=== PATIENT | female | born 1975 ===

== ENCOUNTER 2018-05-31 17:34 | Inpatient (IN) | payer BC ==
[2018-05-31 18:53] VITALS: BMI 30.8
[2018-05-31] MEDS ORDERED: AMPicillin 2 GM in Sodium Chloride 0.9% 100 ML IVPB ONE (18:53)
[2018-05-31] MEDS ORDERED: Oxytocin 30 UNIT 30 UNITS/500 ML BAG IV ONE (18:56)
[2018-05-31] MEDS: Lactated Ringer's 1,000 ML IV SCH (20:25)
[2018-05-31 20:39] LABS: ALB/GLOB RATIO 0.9 (1.0-2.1); ALBUMIN 3.4 g/dL (3.5-5.0); ALT/SGPT 34 U/L (9-52); AST/SGOT 37 U/L (14-36); BLOOD UREA NITROGEN 11 mg/dl (7-17); CALCIUM 9.6 mg/dL (8.4-10.2); GFR NON-AFRICAN AMERICAN > 60
--- NOTE | 2018-05-31 21:17 | OBADHP ---
Datetime: 05/31/2018 21:10 IP Chief Complaint Other: gest DM/AMA IP Adm Impression Other: very early labor/ Gest DM/AMA Admit Comment, IP Provider: for augumentation of labor with cervidil GBS pos and IV antibiotics star teed Extremities - PN: Normal Abdomen - PN: Abnormal Breast - PN: Not Done Lungs - PN: Normal Heart - PN: Normal Thyroid - PN: Normal Neurologic - PN: Normal HEENT - PN: Normal General - PN: Normal Presentation-Admit: C FHR - Baseline A Provider: 140 Membranes, Provider: Intact Contraction Comments Provider: 2-5 mins Comments, ACOG Physical Exam: Abd soft gravid fundus at term ext no calf tenderness Gestation - Est Wks by US: 39+ Pool Provider: Negative IP Hx Assessment: The History has been Reviewed and is Current Vital Signs Provider: Reviewed IP Chief Complaint: Uterine contractions; Scheduled induction of labor; Other NICHD Variability Prov Fetus A: Moderate 6-25bpm NICHD Accel Fetus A IP Provider: [id number] NICHD Decel Fetus A IP Provider: None Dilatation, Provider: 1cm Effacement, Provider: 20 Station, Provider: H Genitourinary Exam: Normal DTRs - PN: Normal EGA AdmitDate IP: 39.5 IP Adm Impression: Term, intrauterine IP Admit Plan: Admit to unit; Initiate labor augmentation protocol
[2018-06-01 00:06] LABS: HEMOGLOBIN 11.7 g/dL (12.0-16.0); MEAN CELL VOLUME 84.8 fl (81.0-99.0); MEAN CORPUSCULAR HEMOGLOBIN 27.4 pg (27.0-31.0); MEAN CORPUSCULAR HGB CONC 32.3 g/dL (33.0-37.0); RBC 4.27 Mil/uL (3.80-5.20); RED CELL DISTRIBUTION WIDTH 17.3 % (11.5-14.5)
[2018-06-01] MEDS: AMPicillin 1 GM in Sodium Chloride 0.9% 100 ML IVPB SCH ×5 (01:00→16:53)
[2018-06-01] MEDS: Lactated Ringer's 1,000 ML IV SCH ×3 (01:00→16:57)
[2018-06-01] MEDS ORDERED: AMPICILLIN 3 GM ONE (01:08)
[2018-06-01] MEDS ORDERED: Fentanyl/Bupivacaine HCl 250 ML EPI ONE (01:12)
[2018-06-01] MEDS ORDERED: Oxytocin 30 UNIT 30 UNITS/500 ML BAG IV ONE (13:54)
[2018-06-01] MEDS ORDERED: Bupivacaine HCl 0.5% PF (30 ml) Inj ONE (17:20)
[2018-06-01] MEDS: OXYTOCIN/0.9 % NS 20 UNIT/1,000 ML BAG IV SCH ×2 (17:46→21:00)
--- NOTE | 2018-06-01 20:51 | OBDS ---
MATERNAL INFORMATION Estimated Blood Loss (ml): 250cc Other Maternal Complications: gest DM Provider Comments: Delivered a living baby boy appears term, cried spontaneously nuchal cord x1 loos e undone priior to full delivery 9/9, AF clear Placenta complete and intact Small laceration va maegan-perineal repaired as above. Uterus contracted well, no complications Tolerated procedure well R ectal done no defects. LABOR SUMMARY EDC: 06/02/2018 00:00 No. Babies in Womb: 1 LABOR INFORMATION Reason for Induction: Other Reason for Induction Other: AMA/gestational DM Group B Beta Strep: Positive (Annotations: 05/02/18) Steroids Given: None Reason Steroids Not Administered: Not Applicable MEMBRANES Membranes Rupture Method: Spontaneous Rupture of Membranes: 06/01/2018 19:10 Amniotic Fluid Color: Clear Amniotic Fluid Amount: Moderate Amniotic Fluid Odor: Normal VAGINAL DELIVERY Episiotomy: None Laceration Extension: First Degree Laceration Type: Perineal; Vaginal Laceration Repair Note: small vaginal-perineal laceration 1st dg repaired with 2-0 chromic without a ny complications Sponge Count Correct: Yes Sharps Count Correct: Yes Count Comment: count correct and verified by RN CSECTION DELIVERY Primary Indication: N/A Secondary Indication: N/A CSection Incision: N/A Uterine Closure: N/A BABY A INFORMATION Forceps: N/A Vacuum Extraction: N/A Shoulder Dystocia : No PRESENTATION/POSITION BABY A Cephalic Presentation: Vertex Vertex Position: Left Occipital Anterior Breech Presentation: N/A CORD INFORMATION BABY A Nuchal Cord : Around Neck x1, Loose
[2018-06-01] MEDS ORDERED: Benzocaine/Menthol SPRAY TOP PRN ×2 (20:53→23:50)
[2018-06-01] MEDS ORDERED: Oxycodone/Acetaminophen 5/325 mg Tab PO PRN ×2 (20:53→23:50)
[2018-06-01] MEDS ORDERED: OXYTOCIN/0.9 % NS 20 UNIT/1,000 ML BAG IV SCH (23:50)
[2018-06-02 07:35] LABS: BASO % 0.2 % (0.0-2.0); EOS # 0.1 K/uL (0.0-0.7); EOS % 0.3 % (0.0-4.0); HEMOGLOBIN 10.9 g/dL (12.0-16.0); MEAN CELL VOLUME 83.6 fl (81.0-99.0); MEAN CORPUSCULAR HEMOGLOBIN 27.6 pg (27.0-31.0); MEAN PLATELET VOLUME 8.9 fl (7.2-11.7); MONO # 0.8 K/uL (0.0-0.8); MONO % 4.1 % (0.0-10.0); NEUT # 17.3 K/uL (1.8-7.0); NEUT % 85.4 % (50.0-75.0); RBC 3.95 Mil/uL (3.80-5.20); RED CELL DISTRIBUTION WIDTH 17.2 % (11.5-14.5); WHITE BLOOD COUNT 20.2 K/uL (4.8-10.8)
[2018-06-02 10:51] LABS: ALB/GLOB RATIO 0.8 (1.0-2.1); ALBUMIN 2.6 g/dL (3.5-5.0); ALT/SGPT 28 U/L (9-52); AST/SGOT 34 U/L (14-36); BLOOD UREA NITROGEN 7 mg/dl (7-17); CALCIUM 8.6 mg/dL (8.4-10.2); GFR NON-AFRICAN AMERICAN > 60
--- NOTE | 2018-06-02 14:07 | OBPPN ---
Datetime: 06/02/2018 14:04 PP Pain Prov: Within normal limits PP Nausea Prov: Denies PP Flatus Prov: Yes PP BM Prov: No PP Breasts Prov: Normal PP Heart Prov: Normal PP Lungs Prov: Normal PP Abdomen/Uterus Prov: Normal PP Lochia Prov: Normal PP Vulva/Perineum Prov: Normal PP CVA Tenderness Prov: Normal PP Extremities Prov: Normal PP Progress Prov: Normal PP Impression Prov: Normal progression PP Plan Prov: Continue present management PP Progress Note Prov: stable ppd 1 continue present care IP PP Procedures: None Vital Signs Provider PP: Reviewed; Within Normal Limits
--- NOTE | 2018-06-03 10:52 | OBPPN ---
Datetime: 06/03/2018 10:48 PP Pain Prov: Within normal limits PP Pain Prov comment: No SOB, chest or leg pains PP Nausea Prov: Denies PP Flatus Prov: Yes PP Nausea Prov comment: voiding well PP Breasts Prov: Normal PP Lungs Prov: Normal PP Abdomen/Uterus Prov: Abnormal PP Lochia Prov: Normal PP CVA Tenderness Prov: Normal PP Extremities Prov: Normal PP C/S Incision Prov: Not Applicable PP Progress Prov: Normal PP Comments Phys Exam Prov: breast NT, NE; Abd soft nd, fundus firm below the umb NT Ext no calf te nderness PP Impression Prov: Normal progression PP Plan Prov: Discharge PP Progress Note Prov: blood sugars ok, instructions given to continue FBS and 2 hr PP at home IP PP Procedures: None Vital Signs Provider PP: Reviewed
--- NOTE | 2018-06-03 10:55 | OBDCSUM ---
Datetime: 06/03/2018 10:51 Discharged to, Provider: Home Follow up at, Provider: Dr Burton Disch Instr Activity: Bedrest; May be up to bathroom; May be up for meals; May Shower Disch Instr Diet: Regular Discharge Instructions, Provider: Routine instructions given Discharge Diagnosis, Provider: Term Delivered Discharge Time: 06/03/2018 10:51 Follow up in weeks, Provider: 4-6 wks Disch Referrals: None Contraception discussed, Prov: Yes Disch Activity Restrictions: No exercising; No lifting; No driving; Minimize walking; Minimize stair -climbing; No sexual activity; Nothing in vagina - [place], tampons, douche Discharge Comment, Provider: Continue FBS and 2 hr PP sugar monitoring Discharge Diagnosis Prov Other: Gest DM; AMA Contraception after Delivery: Undecided
[2018-06-03 18:08] VITALS: BP 123/71; PULSE 75; RESP 20; TEMP 98.2; O2SAT 99
== END 2018-06-03 13:50 | disposition home or self-care (01) | DRG 807 ==
LOC: H.EROB2 17:34 → EDSTATUS 18:10 → H.L&D 18:53 → H.OB/GYN 06-01 23:25
PROVIDERS: ADMIT Specialist; ATTEND Specialist
PROC: 10E0XZZ Delivery of Products of Conception, External Approach (ICD-10-PCS; principal; 2018-05-31)
PROC: 0HQ9XZZ Repair Perineum Skin, External Approach (ICD-10-PCS; 2018-05-31)
PROC: 4A1HXCZ Monitoring of Products of Conception, Cardiac Rate, External Approach (ICD-10-PCS; 2018-05-31)
DX: O24.429 Gestational diabetes mellitus in childbirth, unspecified control (principal); Z37.0 Single live birth; Z3A.39 39 weeks gestation of pregnancy; O69.81X0 Labor and delivery complicated by cord around neck, without compression, not applicable or unspecified; O70.0 First degree perineal laceration during delivery; O99.824 Streptococcus B carrier state complicating childbirth